=== PATIENT | female | born 1965 | race Caucasian/White ===

== ENCOUNTER → 2017-12-27 15:34 | Outpatient (CLI) | payer OTHER, SELFPAY | PROVIDERS: PCP Family Medicine; Visit Provider Family Medicine | DX: L02.612 Cutaneous abscess of left foot (principal) | CPT/HCPCS: 87252 ==

== ENCOUNTER → 2018-06-09 08:37 | Outpatient (CLI) | payer OTHER, SELFPAY ==
--- NOTE | 2018-06-09 | DI.MG.S_ITS ---
BILATERAL DIGITAL SCREENING MAMMOGRAM 3D/2D WITH CAD POST LUMPECTOMY: 06/09/2018 CLINICAL: Routine screening. Personal history of left breast cancer. Comparison is made to exams dated: 03/30/2017 mammogram, 03/16/2016 mammogram, and 05/19/2015 mammogram - [facility]. There are scattered fibroglandular elements in both breasts. Current study was also evaluated with a Computer Aided Detection (CAD) system. There are benign post operative findings in the left breast. No significant masses, calcifications, or other findings are seen in either breast. There has been no significant interval change. IMPRESSION: There is no mammographic evidence of malignancy. A 1 year screening mammogram is recommended. This exam was interpreted at Station ID: [id number]. NOTE: For mammograms, a report in lay terms will be sent to the patient. Approximately 15% of breast malignancies will not be visualized mammographically. In the management of a palpable breast mass, a negative mammogram must not discourage biopsy of a clinically suspicious lesion. Electronically Signed By: Zohreh miles/griselda:06/09/2018 10:56:10 letter sent: Normal Exam ACR BI-RADS Category 2: Benign Finding(s) 3342F
== END ==
PROVIDERS: PCP Family Medicine; Visit Provider Family Medicine
DX: Z12.31 Encounter for screening mammogram for malignant neoplasm of breast (principal); Z85.3 Personal history of malignant neoplasm of breast
CPT/HCPCS: 77063; 77067

== ENCOUNTER → 2020-02-26 16:36 | Outpatient (CLI) | payer OTHER, SELFPAY ==
--- NOTE | 2020-02-26 | DI.MG.S_ITS ---
BILATERAL DIGITAL SCREENING MAMMOGRAM 3D/2D WITH CAD POST LUMPECTOMY: 02/26/2020 CLINICAL: Routine screening. Breast cancer. Comparison is made to exams dated: 06/09/2018 mammogram - [facility], 03/30/2017 mammogram, and 03/16/2016 mammogram - [facility]. There are scattered fibroglandular elements in both breasts. Current study was also evaluated with a Computer Aided Detection (CAD) system. There are benign post operative findings in the left breast. No significant masses, calcifications, or other findings are seen in either breast. There has been no significant interval change. IMPRESSION: BENIGN There is no mammographic evidence of malignancy. A 1 year screening mammogram is recommended. This exam was interpreted at Station ID: [id number]. NOTE: For mammograms, a report in lay terms will be sent to the patient. Approximately 15% of breast malignancies will not be visualized mammographically. In the management of a palpable breast mass, a negative mammogram must not discourage biopsy of a clinically suspicious lesion. Electronically Signed By: Babak curtis/griselda:02/26/2020 16:57:28 letter sent: Normal Exam ACR BI-RADS Category 2: Benign Finding(s) 3342F
== END ==
PROVIDERS: PCP Family Medicine; Referring Provider Family Medicine; Visit Provider Family Medicine
DX: Z12.31 Encounter for screening mammogram for malignant neoplasm of breast (principal); Z85.3 Personal history of malignant neoplasm of breast
CPT/HCPCS: 77063; 77067

== ENCOUNTER 2021-02-08 14:26 | Emergency (ER) | payer OTHER, SELFPAY ==
[2021-02-08 14:30] VITALS: BP 150/85; PULSE 71; RESP 16; TEMP 37.2; O2SAT 97; BMI 36.0
--- NOTE | 2021-02-08 17:06 | PC.NURSE ---
Checked on patient. Patient speaking about wanting to leave, apologized again for long wait times. Patient requested time to speak with spouse
--- NOTE | 2021-02-08 18:07 | PC.NURSE ---
Patient tearful and requesting to leave.
== END 2021-02-08 18:10 | disposition left against medical advice (07) ==
PROVIDERS: Emergency Provider Emergency Medicine; PCP Family Medicine
CPT/HCPCS: 99281

== ENCOUNTER → 2021-05-17 08:20 | Outpatient (CLI) | payer OTHER, SELFPAY ==
[2021-05-17 20:13] LABS: COVID-19 CEPHEID PCR (VTM/NP) POSITIVE (Negative)
== END ==
PROVIDERS: PCP Family Medicine; Referring Provider Nurse Practitioner Family; Visit Provider Nurse Practitioner Family
DX: U07.1 COVID-19 (principal)
CPT/HCPCS: U0003

== ENCOUNTER → 2021-06-01 08:07 | Outpatient (CLI) | payer OTHER, SELFPAY ==
[2021-06-01 08:50] LABS: Add Manual Diff / Slide Review NO; Basophils Absolute Auto 100 /uL (0-100); Basophils Percent Auto 1.2 % (0-2); Eosinophils Absolute Auto 200 /uL (0-450); Eosinophils Percent Auto 2.9 % (2-4); Hematocrit 37.8 % (36-46); Hemoglobin 12.4 g/dL (12.0-16.0); Lymphocytes Absolute Auto 1600 /uL (1100-4500); Lymphocytes Percent Auto 21.2 % (25-40); Mean Corpuscular HGB Conc 32.9 % (30-36); Mean Corpuscular Hemoglobin 30.2 PG (26-34); Mean Corpuscular Volume 91.9 fL (80-100); Monocytes Absolute Auto 600 /uL (0-900); Monocytes Percent Auto 8.1 % (3-14); Neutrophils Absolute Auto 5000 /uL (1500-7000); Neutrophils Percent Auto 66.6 % (50-75); Platelet Count 301 X10^3/uL (150-400); Red Blood Cell Count 4.11 X10^6/uL (4.0-5.2); Red Cell Distribution Width 13.1 % (11.6-14.8); White Blood Cell Count 7.5 X10^3/uL (4.5-11.0)
[2021-06-01 09:23] LABS: Alanine Aminotransferase 15 IU/L (<35); Albumin 4.2 g/dL (3.5-5.0); Albumin Globulin Ratio 1.4 (1.0-2.8); Alkaline Phosphatase 84 U/L (38-126); Aspartate Aminotransferase 23 IU/L (14-36); BUN Creatinine Ratio 18.2 (6-22); Bilirubin Total 0.6 mg/dL (0.2-1.3); Blood Urea Nitrogen 14 mg/dL (7-17); Calcium 9.7 mg/dL (8.4-10.2); Carbon Dioxide 29 mmol/L (22-32); Chloride 103 mmol/L (98-107); Cholesterol 187 mg/dL (140-199); Estimated Glomerular Filt Rate > 60.0 mL/min (>60); Glucose 106 mg/dL (70-100); HDL Cholesterol 71 mg/dL (40-60); HEMOLYSIS < 15 (0-50); LDL Cholesterol Calculated 103 mg/dL (<100); Potassium 4.6 mmol/L (3.4-5.1); Sodium 139 mmol/L (137-145); Total Protein 7.2 g/dL (6.3-8.2); Triglycerides 64 mg/dL (35-150)
== END ==
PROVIDERS: PCP Family Medicine; Referring Provider Family Medicine; Visit Provider Family Medicine
DX: S46.912A Strain of unspecified muscle, fascia and tendon at shoulder and upper arm level, left arm, initial encounter (principal); E66.9 Obesity, unspecified; F32.9 Major depressive disorder, single episode, unspecified
CPT/HCPCS: 36415; 80053; 80061; 84443; 85025

== ENCOUNTER → 2022-05-04 14:46 | Outpatient (CLI) | payer OTHER, SELFPAY ==
--- NOTE | 2022-05-04 14:47 | DI.MG.S_ITS ---
BILATERAL DIGITAL SCREENING MAMMOGRAM 3D/2D WITH CAD POST LUMPECTOMY: 05/04/2022 CLINICAL: Routine screening. Personal history of left breast cancer. Comparison is made to exams dated: 02/26/2020 mammogram, 06/09/2018 mammogram - [facility], 03/30/2017 mammogram, 03/16/2016 mammogram, and 05/19/2015 mammogram - [facility]. There are scattered areas of fibroglandular density in both breasts (category b / 25%-50% glandular tissue). Current study was also evaluated with a Computer Aided Detection (CAD) system. There are benign post operative findings in the left breast. No significant masses, calcifications, or other findings are seen in either breast. There has been no significant interval change. IMPRESSION: BENIGN There is no mammographic evidence of malignancy. A 1 year screening mammogram is recommended. This exam was interpreted at Station ID: [id number]. NOTE: For mammograms, a report in lay terms will be sent to the patient. Approximately 15% of breast malignancies will not be visualized mammographically. In the management of a palpable breast mass, a negative mammogram must not discourage biopsy of a clinically suspicious lesion. Electronically Signed By: Elia bell/griselda:05/04/2022 15:30:29 letter sent: Normal Exam ACR BI-RADS Category 2: Benign Finding(s) 3342F
== END ==
PROVIDERS: PCP Family Medicine; Referring Provider Family Medicine; Visit Provider Family Medicine
DX: Z12.31 Encounter for screening mammogram for malignant neoplasm of breast (principal); Z85.3 Personal history of malignant neoplasm of breast
CPT/HCPCS: 77063; 77067

== ENCOUNTER → 2022-05-12 12:14 | Outpatient (CLI) | payer OTHER, SELFPAY ==
--- NOTE | 2022-05-12 12:15 | DI.MRI.S_ITS ---
PROCEDURE: MR KNEE LT WO CON INDICATIONS: INTERNAL DERANGEMENT OF LEFT KNEE TECHNIQUE: Noncontrast sagittal PD fast spin echo and T2 fast spin echo with fat saturation, sagittal 3-D FLASH with fat saturation; coronal T1 spin echo and PD fast spin echo with fat saturation, and axial PD fast spin echo with fat saturation through the knee. COMPARISON: [facility] [place], CR, XR KNEE 4+ VIEWS LEFT, 05/03/2022, 11:04. FINDINGS: Image quality: Excellent. Anterior Cruciate Ligament: Intact. Posterior Cruciate Ligament: Intact. Medial Collateral Ligament: Mild edema surrounding the proximal medial collateral ligament is suspicious for a low-grade sprain. Lateral Collateral Ligament: Suspected low-grade sprain of the lateral collateral ligament. Distal biceps femoris tendon and conjoint tendon appear to be grossly intact. Medial Meniscus: Intrasubstance signal within the medial meniscus may represent intrasubstance degeneration or a meniscal contusion without a discrete tear identified. Lateral Meniscus: Mild intrasubstance degeneration or meniscal contusion in the lateral meniscus. Borderline partial discoid appearance of the lateral meniscus. Medial and Lateral Tendons: The semimembranosus tendon insertions and meniscocapsular junction appear intact. Visualized portions of the pes anserinus tendons appear normal. No abnormal bursal fluid. The long and short heads of the biceps femoris tendon appear intact. The popliteus tendon appears intact. No signs of posterolateral corner injury. Iliotibial band appears normal. Anterior Structures: The quadriceps and patellar tendons appear intact. No patellar subluxation. No femoral trochlear dysplasia or ventral trochlear prominence. No edema in the infrapatellar fat pad. Bones: Subchondral impaction fractures are seen at the anterior weight-bearing portion of the lateral femoral condyle and lateral tibial plateau with moderate surrounding osseous edema. The lateral femoral condyle fracture is mildly depressed with a deep sulcal notch. Degenerative changes are seen in the proximal tibiofibular articulation with subchondral cystic changes. Medial Femorotibial Cartilage: Moderate grade partial-thickness cartilage irregularity is seen in the central weight-bearing portion of the medial femoral condyle with small marginal osteophytes. Lateral Femorotibial Cartilage: Marginal osteophytes are present. Cartilage irregularity is seen in the region of the femoral impaction fracture. Patellofemoral Cartilage: Large area of full-thickness cartilage loss is seen at the lateral facet and median ridge of the patella with subchondral cystic changes, marginal osteophyte formation, and remodeling of the articular surfaces. There is full-thickness cartilage loss at the lateral femoral trochlea and trochlear groove with subchondral edema and subchondral cystic changes. Soft Tissues: There is a moderate to large joint effusion. Suspected 8 mm filling defect in the anterior intercondylar notch could represent an intra-articular ossified loose body. There is a small medial popliteal cyst. Fluid is seen tracking along the popliteus tendon sheath. Soft tissue edema is seen surrounding the knee. The musculature surrounding the knee is normal in bulk. IMPRESSION: 1. Mildly depressed subchondral impaction fracture at the anterior weight-bearing portion of the lateral femoral condyle with moderate surrounding trabecular bone injury. Small nondepressed subchondral fracture is also seen at the adjacent portion of the lateral tibial plateau with adjacent trabecular bone injury. 2. Low-grade sprains of the medial and lateral collateral ligaments. 3. Intrasubstance signal within the medial and lateral menisci may represent intrasubstance degeneration or meniscal contusions, without a discrete meniscal tear seen. 4. Diffuse full-thickness cartilage loss in the anterior compartment at the lateral patellar facet and lateral femoral trochlea with subchondral cystic changes and subchondral edema as well as remodeling of the articular surfaces. Grade 2-3 chondromalacia is seen in the medial and lateral compartments. Tricompartmental marginal osteophytes. 5. Moderate to large joint effusion. Possible 8 mm intra-articular loose body anterior to the intercondylar notch. 6. Small medial popliteal cyst. Approved by: Babak Magana M.D. on 05/12/2022 at 20:31
== END ==
PROVIDERS: PCP Family Medicine; Referring Provider Orthopaedic Surgery; Visit Provider Orthopaedic Surgery
DX: S82.142A Displaced bicondylar fracture of left tibia, initial encounter for closed fracture (principal); S72.422A Displaced fracture of lateral condyle of left femur, initial encounter for closed fracture; S83.412A Sprain of medial collateral ligament of left knee, initial encounter; S83.422A Sprain of lateral collateral ligament of left knee, initial encounter; M25.462 Effusion, left knee; M71.22 Synovial cyst of popliteal space [Baker], left knee; M23.92 Unspecified internal derangement of left knee; X58.XXXA Exposure to other specified factors, initial encounter
CPT/HCPCS: 73721

== ENCOUNTER → 2023-03-06 10:01 | Outpatient (CLI) | payer OTHER, SELFPAY ==
--- NOTE | 2023-03-06 10:03 | DI.RAD.S_ITS ---
PROCEDURE: XR FOOT LT MIN 3V INDICATIONS: Heel pain TECHNIQUE: 3 views of the foot were acquired. COMPARISON: None. FINDINGS: Bones: No fractures or dislocations. No suspicious bony lesions. Plantar calcaneal spur. Soft tissues: No tibiotalar joint effusion. Achilles tendon appears normal. IMPRESSION: Plantar calcaneal spur. No acute bony abnormality. Comment: If clinically suspect acute fracture, consider CT calcaneus. Dictated by: Timmy Montilla M.D. on 03/06/2023 at 12:03 Approved by: Timmy Montilla M.D. on 03/06/2023 at 12:04
== END ==
PROVIDERS: PCP Family Medicine; Referring Provider Nurse Practitioner Family; Visit Provider Nurse Practitioner Family
DX: M77.32 Calcaneal spur, left foot (principal); M79.672 Pain in left foot
CPT/HCPCS: 73630

== ENCOUNTER → 2023-05-25 08:10 | Outpatient (CLI) | payer OTHER, SELFPAY ==
[2023-05-25 09:50] LABS: Alanine Aminotransferase 26 IU/L (<35); Albumin 4.1 g/dL (3.5-5.0); Albumin Globulin Ratio 1.3 (1.0-2.8); Alkaline Phosphatase 77 U/L (38-126); Aspartate Aminotransferase 43 IU/L (14-36); BUN Creatinine Ratio 22.2 (6-22); Bilirubin Total 0.4 mg/dL (0.2-1.3); Blood Urea Nitrogen 16 mg/dL (7-17); Calcium 9.4 mg/dL (8.4-10.2); Carbon Dioxide 29 mmol/L (22-32); Chloride 103 mmol/L (98-107); Cholesterol 176 mg/dL (140-199); Estimated Glomerular Filt Rate > 60 mL/min (>60); Globulin 3.1 g/dL (1.7-4.1); Glucose 106 mg/dL (70-100); HDL Cholesterol 73 mg/dL (40-60); HEMOLYSIS < 15 (0-50); LDL Cholesterol Calculated 87 mg/dL (<100); Potassium 4.6 mmol/L (3.4-5.1); Sodium 139 mmol/L (137-145); Total Protein 7.2 g/dL (6.3-8.2); Triglycerides 79 mg/dL (35-150)
[2023-05-25 09:55] LABS: High Sensitivity CRP - Cardiac 10.5 mg/L (1.0-3.0)
[2023-05-25 10:22] LABS: Vitamin D 25 Hydroxy (D3) 21.1 ng/mL (30.0-100.0)
== END ==
PROVIDERS: PCP Family Medicine; Referring Provider Family Medicine; Visit Provider Family Medicine
DX: E78.5 Hyperlipidemia, unspecified (principal); Z85.3 Personal history of malignant neoplasm of breast; E55.9 Vitamin D deficiency, unspecified
CPT/HCPCS: 36415; 80053; 80061; 82306; 86140

== ENCOUNTER → 2023-06-08 | Outpatient (CLI) | payer OTHER, SELFPAY ==
--- NOTE | 2023-06-08 11:37 | DI.RAD.S_ITS ---
Bone Density Report Name: YUE JONES Age: 57 Sex: Female Ethnicity: White Date of : 1965 Indication: postmenopausal; screening for osteoporosis; history of glucocorticoids; Referring Provider: SONIA MCDONALD Study: Bone densitometry was performed. Exam Date: June 08, 2023 Accession number: [id number] Bone Density: Region BMD T-score Z-score Classification AP Spine(L1-L4) 0.983 -0.6 0.7 Normal Femoral Neck (Left) 0.709 -1.3 -0.1 Osteopenia Total Hip (Left) 0.862 -0.7 0.2 Normal Femoral Neck (Right) 0.722 -1.1 0.0 Osteopenia Total Hip (Right) 0.945 0.0 0.8 Normal Total Hip Mean 0.904 -0.4 0.5 Normal World Health Organization criteria for BMD impression classify patients as: Normal (T-score at or above -1.0), Osteopenia (T-score between -1.0 and -2.5), or Osteoporosis (T-score at or below -2.5). 10-year Fracture Risk(1): Major Osteoporotic Fracture 9.4% Hip Fracture 0.6% Reported Risk Factors: [place] (), Neck BMD=0.709, BMI=42.9, glucocorticoids (1) FRAX(R) Version 3.08. Fracture probability calculated for an untreated patient. Fracture probability may be lower if the patient has received treatment. Impression: The patient has low bone mass, based on the Left Femoral Neck T-score. The patient has an estimated ten-year risk of hip fracture of 0.6% and an estimated ten-year risk of major fracture of 9.4%, based on the WHO FRAX algorithm. The patient has risk factors, including: history of glucocorticoid therapy. Discussion: BONE DENSITY IS LOW AT ONE OR MORE SKELETAL SITES. This patient's lowest T-score is low at one or more skeletal sites. It meets the World Health Organization's (WHO) criteria for low bone mass (T-score between -1.0 and -2.5). The patient's 10-year risk of fracture as calculated by FRAX is less than the threshold where pharmacological therapy is recommended by the National Osteoporosis Foundation (NOF). However, all treatment decisions require clinical judgment and consideration of individual patient factors, including patient preferences, comorbidities, previous drug use, risk factors not captured in the FRAX model (e.g., frailty, falls, vitamin D deficiency, increased bone turnover, interval significant decline in bone density) and possible under or overestimation of fracture risk by FRAX. The patient should follow a healthful lifestyle (good nutrition with adequate calcium and vitamin D, and appropriate weight-bearing exercise). Follow-Up: Consider repeating this study in 2 to 3 years to reassess this patient's status, or sooner if there is some new clinical indication. Reported by: [facility] M.D. on 06/08/2023 12:16:00 PM.
== END ==
LOC: RAD 11:36
PROVIDERS: PCP Family Medicine; Referring Provider Family Medicine; Visit Provider Family Medicine
DX: Z13.820 Encounter for screening for osteoporosis (principal); M85.852 Other specified disorders of bone density and structure, left thigh; N95.9 Unspecified menopausal and perimenopausal disorder; Z85.3 Personal history of malignant neoplasm of breast
CPT/HCPCS: 77080

== ENCOUNTER → 2023-06-22 08:14 | Outpatient (CLI) | payer OTHER, SELFPAY ==
--- NOTE | 2023-06-22 08:15 | DI.MG.S_ITS ---
BILATERAL DIGITAL SCREENING MAMMOGRAM 3D/2D WITH CAD: 06/22/2023 CLINICAL: Routine screening. Personal history of left breast cancer. Comparison is made to exams dated: 05/04/2022 mammogram, 02/26/2020 mammogram, and 06/09/2018 mammogram - [facility]. There are scattered areas of fibroglandular density in both breasts (category b / 25%-50% glandular tissue). Current study was also evaluated with a Computer Aided Detection (CAD) system. There are benign post operative findings in the left breast. No significant masses, calcifications, or other findings are seen in either breast. There has been no significant interval change. IMPRESSION: BENIGN There is no mammographic evidence of malignancy. A 1 year screening mammogram is recommended. This exam was interpreted at Station ID: [id number]. NOTE: For mammograms, a report in lay terms will be sent to the patient. Approximately 15% of breast malignancies will not be visualized mammographically. In the management of a palpable breast mass, a negative mammogram must not discourage biopsy of a clinically suspicious lesion. Electronically Signed By: Daniele melton/griselda:06/22/2023 10:14:40 letter sent: Normal Exam ACR BI-RADS Category 2: Benign Finding(s) 3342F
== END ==
PROVIDERS: PCP Family Medicine; Referring Provider Family Medicine; Visit Provider Family Medicine
DX: Z12.31 Encounter for screening mammogram for malignant neoplasm of breast (principal); Z85.3 Personal history of malignant neoplasm of breast
CPT/HCPCS: 77063; 77067

== ENCOUNTER → 2024-06-26 15:13 | Outpatient (CLI) | payer OTHER, SELFPAY ==
--- NOTE | 2024-06-26 15:13 | DI.MG.S_ITS ---
BILATERAL DIGITAL SCREENING MAMMOGRAM 3D/2D WITH CAD POST LUMPECTOMY: 06/26/2024 CLINICAL: Routine screening. Personal history of left breast cancer. Comparison is made to exams dated: 06/22/2023 mammogram, 05/04/2022 mammogram, 02/26/2020 mammogram, 06/09/2018 mammogram - [facility], and 03/30/2017 mammogram - [facility]. There are scattered areas of fibroglandular density (category b / 25%-50% glandular tissue). Current study was also evaluated with a Computer Aided Detection (CAD) system. There are benign post operative findings in the left breast. No significant masses, calcifications, or other findings are seen in either breast. There has been no significant interval change. IMPRESSION: BENIGN There is no mammographic evidence of malignancy. A 1 year screening mammogram is recommended. This exam was interpreted at Station ID: [id number]. NOTE: For mammograms, a report in lay terms will be sent to the patient. Approximately 15% of breast malignancies will not be visualized mammographically. In the management of a palpable breast mass, a negative mammogram must not discourage biopsy of a clinically suspicious lesion. Electronically Signed By: Olivia Latif M.D., Ph.D. rolo/griselda:06/27/2024 01:07:06 letter sent: Normal Exam ACR BI-RADS Category 2: Benign
== END ==
PROVIDERS: PCP Family Medicine; Referring Provider Family Medicine; Visit Provider Family Medicine
DX: Z12.31 Encounter for screening mammogram for malignant neoplasm of breast (principal); Z85.3 Personal history of malignant neoplasm of breast
CPT/HCPCS: 77063; 77067

== ENCOUNTER → 2024-10-14 08:06 | Outpatient (CLI) | payer OTHER, SELFPAY ==
[2024-10-14 09:03] LABS: Hematocrit 38.1 % (36-46); Hemoglobin 12.9 g/dL (12.0-16.0); Mean Corpuscular HGB Conc 33.8 % (30-36); Mean Corpuscular Hemoglobin 30.6 PG (26-34); Mean Corpuscular Volume 90.6 fL (80-100); Platelet Count 282 X10^3/uL (150-400); Red Cell Distribution Width 12.9 % (11.6-14.8); White Blood Cell Count 7.5 X10^3/uL (4.5-11.0)
[2024-10-14 09:14] LABS: Hemoglobin A1C% w Est Avg Glu 5.2 % (4.0-6.0)
[2024-10-14 09:21] LABS: Alanine Aminotransferase 32 IU/L (<35); Albumin 4.2 g/dL (3.5-5.0); Albumin Globulin Ratio 1.4 (1.0-2.8); Alkaline Phosphatase 96 U/L (38-126); Aspartate Aminotransferase 35 IU/L (14-36); BUN Creatinine Ratio 25.3 (6-22); Bilirubin Total 0.5 mg/dL (0.2-1.3); Blood Urea Nitrogen 19 mg/dL (7-17); Calcium 9.4 mg/dL (8.4-10.2); Carbon Dioxide 24 mmol/L (22-32); Chloride 104 mmol/L (98-107); Cholesterol 175 mg/dL (140-199); Estimated Glomerular Filt Rate > 60 mL/min (>60); Globulin 3.1 g/dL (1.7-4.1); Glucose 120 mg/dL (70-100); HDL Cholesterol 64 mg/dL (40-60); HEMOLYSIS < 15 (0-50); LDL Cholesterol Calculated 92 mg/dL (<100); Potassium 4.4 mmol/L (3.4-5.1); Sodium 138 mmol/L (137-145); Total Protein 7.3 g/dL (6.3-8.2); Triglycerides 97 mg/dL (35-150)
[2024-10-14 09:36] LABS: Vitamin D 25 Hydroxy (D3) 31.1 ng/mL (30.0-100.0)
[2024-10-15 03:39] LABS: CRP, High Sensitivity 12.93 mg/L (0.00-3.00)
[2024-10-15 07:11] LABS: Insulin Level Total 15.8 uIU/mL (2.6-24.9)
[2024-10-25 12:09] LABS: Percent Free Testosterone 2.21 % (0.50-2.80); Testosterone Free 0.28 ng/dL (0.10-0.85); Testosterone Total 12.8 ng/dL (.)
== END ==
PROVIDERS: PCP Family Medicine; Referring Provider Family Medicine; Visit Provider Family Medicine
DX: Z00.01 Encounter for general adult medical examination with abnormal findings (principal); M85.80 Other specified disorders of bone density and structure, unspecified site; Z78.0 Asymptomatic menopausal state; R79.82 Elevated C-reactive protein (CRP); R74.01 Elevation of levels of liver transaminase levels; F32.9 Major depressive disorder, single episode, unspecified
CPT/HCPCS: 36415; 80053; 80061; 82306; 82533; 82627; 83036; 83525; 84402; 84403; 85027; 86140

== ENCOUNTER 2024-10-17 09:30 | Day surgery (SDC) | payer OTHER, SELFPAY ==
[2024-10-17 09:45] VITALS: BP 133/77; PULSE 61; RESP 16; TEMP 36.2; O2SAT 97
[2024-10-17] MEDS: LACTATED RINGERS 1,000 ML 42 ML IV (09:51)
--- NOTE | 2024-10-17 10:07 | P.HP_ITS ---
History of Present Illness History of Present Illness Date Patient Seen: 10/17/24 Time Patient Seen: 10:07 Chief complaint: Screening Colonoscopy Narrative: Abbey is a 59-year-old woman here for a screening colonoscopy. Her last one was about 10 years ago and was normal. No family history of colon cancer that she is aware of. ON LICENSE OF [facility] Medical History (Updated 10/17/24 @ 10:08 by Cosme Sandhu MD) Longitudinal melanonychia Obesity with body mass index (BMI) of 30.0 to 39.9 (03/23/15) COVID-19 (~05/18/21) Left shoulder strain Herpes zoster Plantar warts Depression 7 Abnormal Pap smear of cervix (2012) Trochanteric bursitis Plantar fascial fibromatosis Carpal tunnel syndrome (1983) Depression (2013) Convalescence following chemotherapy (01/23/15) Surgical History (Updated 03/01/18 @ 15:44 by Sarina August) Status post surgical manipulation of ankle joint (1996) Status post breast biopsy (06/2013) Status post tubal ligation (11/2008) Status post delivery (2008) Status post delivery (2002) Status post delivery (1999) Status post breast lumpectomy (10/14/13) Family History (Updated 03/01/18 @ 15:45 by Sarina August) Brother Muscular dystrophy Father Age: 88 Hypertension Grandfather Lung cancer Mother Age: 84 Colon polyps Grandmother Lung cancer Social History (Updated 10/03/24 @ 08:36 by Mel Watson [facility]) marital status: number of children: 3 household members: spouse and children lives independently: No caregiver/support person: No housing: house pets and animals: Yes education level: master's degree occupational status: employed current occupational exposures/hazards: No special cathy needs: No travel history: recent and recurrent leisure activities: exercise, reading and volunteer work seatbelt use: always helmet use: Yes water heater temp set < 120 deg: Yes working smoke detector in home: Yes fire extinguisher in home: Yes carbon monox detector in home: Yes firearms in home: No do you feel safe at home: Yes Smoking Status: Never smoker second hand exposure: No alcohol intake: current substance use type: does not use during the past year weight has: increased > 10 lbs well-balanced diet: daily or most days daily servings fruits/ve-4 caffeine: Yes eating out: 1-3 times/week Type(s) of exercise: walking, regular exercise and weight lifting frequency: 3-4 times per week duration: 45-60 minutes/day Meds Home Medications and Allergies Home Medications Medication Instructions Recorded Confirmed Type clobetasol 0.05 % topical ointment 1 applictn topical QDAY #30 grams 08/01/19 10/03/24 Rx estradiol 0.01% (0.1 mg/gram) 0.5 g vaginal .COMPLEX #42.5 grams 07/04/23 Rx vaginal cream (Estrace) sodium,potassium,mag sulfates 17.5 See Rx Instructions PO .COMPLEX 08/07/24 10/03/24 Rx gram-3.13 gram-1.6 gram oral soln #354 mL (Suprep Bowel Prep Kit) estradiol 10 mcg vaginal tablet 10 mcg vaginal 2XW #24 tabs 09/20/24 10/03/24 Rx (Yuvafem) escitalopram oxalate 10 mg tablet 10 mg PO DAILY #90 tabs 10/16/24 Rx Allergies Allergy/AdvReac Type Severity Reaction Status Date / Time Penicillins [PENICILLINS] Allergy Severe rash Verified 10/03/24 08:27 hydrocodone [HYDROCODONE] AdvReac Severe vomiting Verified 10/03/24 08:27 morphine [MORPHINE] AdvReac Severe vomiting Verified 10/03/24 08:27 Exam Vital Signs (past 8 hours): - 10/17/24 09:45 Temperature 97.2 F L Pulse Rate 61 Respiratory Rate 16 Blood Pressure 133/77 Pulse Oximetry 97 Oxygen Delivery Method Room Air Oxygen Delivery Method Room Air Const General: No acute distress Resp Effort & Inspection: normal respiratory effort Assessment & Plan Assessment and plan (1) Colon cancer screening: Status: Acute Plan Colonoscopy Time-Based Coding :: [TOTAL MINUTES] spent with patient and on the chart (including review of chart, obtaining history, exam, reviewing outside data, placing orders, documenting exam and treatment plan, and counseling patient) on [DATE]. PROFEE Director Pharmacy Services Document charge(s): No
[2024-10-17 10:32] VITALS: BP 81/45; PULSE 61; RESP 18; TEMP 36.1; O2SAT 98
--- NOTE | 2024-10-17 10:34 | PM.OP.COLON ---
Operative Date/Time/Diagnoses Date of procedure: 10/17/24 Time of procedure: 10:34 Pre-op diagnosis: Colon cancer screening Post-op diagnosis: same Procedure & Clinicians Study performed: Colonoscopy Same procedure as scheduled: Yes Surgeon: Cosme Sandhu Procedure Notes Procedure in detail: Surgeon: Cosme Sandhu MD Anesthesia: Reji Auguste D.O. Procedure: The patient was brought to the endoscopy suite, placed in left lateral decubitus position. The patient was connected to monitoring devices. A time-out was performed. Sedation was administered. Once the patient was adequately sedated, a digital rectal exam was performed and was normal. The scope was then inserted and advanced to the cecum where the appendiceal orifice was identified and photographed. The scope was then slowly withdrawn over greater than 6 minutes. The mucosa was thoroughly inspected. No abnormalities were found. The scope was retroflexed in the rectum. The scope was straightened and removed. The patient was awakened and brought to recovery. Scope withdrawal time: 6 minutes Sedation time: 12 minutes EBL: 0 Findings: Normal colon Post-procedure Recommendations: Colonoscopy in 10 years Disposition: PACU
[2024-10-17 10:35] VITALS: BP 81/41; PULSE 61; RESP 18; O2SAT 98
[2024-10-17 10:40] VITALS: BP 87/45; PULSE 61; RESP 14; TEMP 36.1; O2SAT 97
[2024-10-17 10:58] VITALS: BP 95/69; PULSE 52; RESP 16; O2SAT 96
[2024-10-17 11:19] VITALS: BP 101/66; PULSE 55; RESP 14; O2SAT 96
== END 2024-10-17 11:25 | disposition home or self-care (01) ==
PROVIDERS: PCP Family Medicine; Referring Provider Surgery; Visit Provider Surgery
PROC: 0DJD8ZZ Inspection of Lower Intestinal Tract, Via Natural or Artificial Opening Endoscopic (ICD-10-PCS; CPT 45378; principal; 2024-10-17 10:30)
DX: Z12.11 Encounter for screening for malignant neoplasm of colon (principal)
CPT/HCPCS: 45378; J2704

== ENCOUNTER → 2024-11-09 10:39 | Outpatient (CLI) | payer OTHER, SELFPAY ==
--- NOTE | 2024-11-09 10:40 | DI.RAD.S_ITS ---
PROCEDURE: XR HIP W PEL IF DONE LT 2V INDICATIONS: left hip pain TECHNIQUE: AP pelvis with lateral view(s) of the left COMPARISON: None. FINDINGS: Bones: There are no osseous abnormalities. SI and hip joints: Normal in width and alignment without arthritic change Soft tissues: Small calcifications are seen adjacent to the greater trochanter regions. IMPRESSION: Calcifications adjacent to the greater trochanter may represent calcifications in the gluteus tendon insertions . These are likely stigmata of old trauma or inflammation Dictated by: Vipul Bains M.D. on 11/11/2024 at 11:10 Approved by: Vipul Bains M.D. on 11/11/2024 at 11:12
--- NOTE | 2024-11-09 10:40 | DI.RAD.S_ITS ---
PROCEDURE: XR KNEE RT 3V INDICATIONS: right knee pain/instability TECHNIQUE: 3 views of the knee were acquired. COMPARISON: None. FINDINGS: Bones: There are no osseous abnormalities. Joints: Severe patellofemoral and moderate medial tibial femoral degeneration appreciated. No effusion. Soft tissues: Normal IMPRESSION: Severe patellofemoral and mild medial tibial femoral degeneration Dictated by: Vipul Bains M.D. on 11/11/2024 at 10:25 Approved by: Vipul Bains M.D. on 11/11/2024 at 10:25
== END ==
PROVIDERS: PCP Family Medicine; Referring Provider Family Medicine; Visit Provider Family Medicine
DX: M25.552 Pain in left hip (principal); M23.51 Chronic instability of knee, right knee; M17.11 Unilateral primary osteoarthritis, right knee
CPT/HCPCS: 73502; 73562

== ENCOUNTER → 2025-06-27 17:00 | Outpatient (CLI) | payer OTHER, SELFPAY ==
--- NOTE | 2025-06-27 17:01 | DI.MG.S_ITS ---
MM screening mammo BI: 06/27/2025. BI-RADS: 2 CLINICAL: 59-year old female for bilateral screening mammogram. No Tyrer-Cuzick risk score calculation due to the patient's personal history of breast cancer. Patient reports a history of left breast carcinoma diagnosed at age 42. Status-post left lumpectomy with radiation therapy and chemotherapy. No first-degree family history of breast cancer. The patient had a prior left breast biopsy. PRIOR EXAMS 06/26/2024, 06/22/2023, 05/04/2022, 02/26/2020. MAMMOGRAPHY TECHNIQUE: 2D and 3D (tomosynthesis) digital mammographic views obtained, with additional images as needed for full coverage. Current study was also evaluated with a Computer Aided Detection (CAD) system. DENSITY B. There are scattered areas of fibroglandular density. MAMMOGRAPHY FINDINGS Right: No suspicious mass, asymmetry, microcalcification, or other abnormality seen. Left: Surgical clips present on the left. Benign-appearing post-surgical changes noted on the left. There are no suspicious masses, calcifications, or other findings in the breast. IMPRESSION: Right * No evidence of malignancy. Left * No evidence of malignancy with benign findings. RECOMMENDATIONS Bilateral * Annual screening mammography. OVERALL ASSESSMENT CATEGORY BI-RADS-2: Benign. The [employer] recommends annual screening mammography beginning at age 40 for women with average risk of breast cancer. ELECTRONICALLY SIGNED: Mario Dietrich M.D. on 06/30/2025 at 06:56:49 AM PT Interpreting Station ID: [id number]
== END ==
LOC: MAMMO 17:01
PROVIDERS: PCP Family Medicine; Referring Provider Family Medicine; Visit Provider Family Medicine
DX: Z12.31 Encounter for screening mammogram for malignant neoplasm of breast (principal); Z85.3 Personal history of malignant neoplasm of breast
CPT/HCPCS: 77063; 77067